=== PATIENT | male | born 1985 | race Caucasian/White ===

== ENCOUNTER 2017-11-13 23:56 | Emergency (ER) | payer BC ==
--- NOTE | 2017-11-14 00:10 | EDM.PDOC ---
ED HPI GENERAL MEDICAL PROBLEM - General Chief Complaint: Abdominal Pain Stated Complaint: LOW BACK PAIN Time Seen by Provider: 11/14/17 00:09 Source of Information: Reports: Patient History Limitations: Reports: No Limitations - History of Present Illness INITIAL COMMENTS - FREE TEXT/NARRATIVE: HISTORY AND PHYSICAL: History of present illness: 32-year-old male presenting emergency department with chief complaint of right upper quadrant pain starting 1-1/2 hours ago. Patient states that approximately 1 and upper hours ago he began to have right pain radiated to below his right-sided rib cage. His sharp and constant however has intermittent times where the pain is worse and then sometimes better. Does admit to eating a large fatty diet tonight. He thought that he may have overate so induced one episode of vomiting which did not seem to help the pain. In a similar episode 2 weeks ago and presented the [facility] department. He left without being seen secondary to being there for an extended time. Patient denies any fever, chills, nausea, chest pain, shortness of breath, cough, diarrhea. He still has his gallbladder and appendix. He has no allergy to sulfa medications. He has no significant past medical history. 0045- CBC, CMP, UA unremarkable 1 mg Diluadid help on some with pain. 2 mg IV dilaudid given 0350- Talked with Dr. Henriquez, surgeon animal damage control agent about patient. Instructed patient to call his office this morning to schedule an appointment for further evaluation. Review of systems: As per history of present illness and below otherwise all systems reviewed and negative. Past medical history: As per history of present illness and as reviewed below otherwise noncontributory. Surgical history: As per history of present illness and as reviewed below otherwise noncontributory. Social history: No reported history of drug or alcohol abuse. Family history: As per history of present illness and as reviewed below otherwise noncontributory. Physical exam: HEENT: Atraumatic, normocephalic, pupils reactive, negative for conjunctival pallor or scleral icterus, mucous membranes moist, throat clear, neck supple, nontender, trachea midline. Lungs: Clear to auscultation, breath sounds equal bilaterally, chest nontender. Heart: S1S2, regular, negative for clicks, rubs, or JVD. Abdomen: Soft, tender to deep palpation right upper quadrant. No right lower quadrant pain. Negative for masses or hepatosplenomegaly. Negative for costovertebral tenderness. Pelvis: Stable nontender. Genitourinary: Deferred. Rectal: Deferred. Extremities: Atraumatic, negative for cords or calf pain. Neurovascular unremarkable. Neuro: Awake, alert, oriented. Cranial nerves II through XII unremarkable. Cerebellum unremarkable. Motor and sensory unremarkable throughout. Exam nonfocal. Diagnostics: CBC, CMP, UA/UC, RUQ US, CT abdomen pelvis Therapeutics: 1 L normal saline, 1 mg Dilaudid IV 1, 2 mg Dialuadid IV x1 Impression: Biliary colic Cholelithiasis without cholecystitis Plan: CBC, CMP, UA, are all unremarkable. Right upper quadrant ultrasound was significant for findings of cholelithiasis without cholecystitis. Patient's symptoms were most likely from these findings. Patient's pain was controlled with a total of 3 mg of Dilaudid. Pain had much improved by time of discharge. After talking to Dr. Henriquez he is aware of the patient and they're going to call his office tomorrow to schedule appointment for further evaluation for possible cholecystectomy. No signs of infection were found throughout exam. He was discharged in good condition with instructions for follow-up as well with Dr. Henriquez as well as his primary care physician. He was given a prescription for [place] 10?3 25 mg #12 for pain. Abdomen Pain Score (Numeric/FACES): 10 - Related Data Allergies Allergy/AdvReac Type Severity Reaction Status Date / Time Sulfa (Sulfonamide Allergy Swelling Verified 11/14/17 00:04 Antibiotics) Home Meds: Home Meds . [No Known Home Meds] 11/14/17 [History] ED ROS GENERAL - Review of Systems Review Of Systems: See Below ED EXAM, GENERAL - Physical Exam Exam: See Below Course - Vital Signs Last Recorded V/S: Last Vital Signs Temp 98.0 F 11/14/17 02:54 Pulse 75 11/14/17 02:54 Resp 16 11/14/17 02:54 BP 111/77 11/14/17 02:54 Pulse Ox 98 11/14/17 02:54 - Orders/Labs/Meds Orders: Active Orders 24 hr Category Date Time Status Abdomen Ltd [US] Stat Exams 11/14/17 02:23 Taken Abdomen Pelvis w Cont [CT] Stat Exams 11/14/17 00:18 Taken CULTURE URINE [RM] Stat Lab 11/14/17 00:00 Received UA W/MICROSCOPIC [URIN] Stat Lab 11/14/17 00:00 Ordered Labs: Laboratory Tests 11/14/17 11/14/17 11/14/17 Range/Units 00:00 00:10 00:10 WBC 10.20 (4.0-11.0) K/uL RBC 4.81 (4.50-5.90) M/uL Hgb 15.0 (13.0-17.0) g/dL Hct 43.0 (38.0-50.0) % MCV 89.4 (80.0-98.0) fL MCH 31.2 (27.0-32.0) pg MCHC 34.9 (31.0-37.0) g/dL RDW Std Deviation 39.4 (28.0-62.0) fl RDW Coeff of Vazquez 12 (11.0-15.0) % Plt Count 247 (150-400) K/uL MPV 9.50 (7.40-12.00) fL Neut % (Auto) 54.7 (48.0-80.0) % Lymph % (Auto) 30.1 (16.0-40.0) % Miller % (Auto) 11.3 (0.0-15.0) % Eos % (Auto) 3.6 (0.0-7.0) % Baso % (Auto) 0.3 (0.0-1.5) % Neut # (Auto) 5.6 (1.4-5.7) K/uL Lymph # (Auto) 3.1 H (0.6-2.4) K/uL Miller # (Auto) 1.2 H (0.0-0.8) K/uL Eos # (Auto) 0.4 (0.0-0.7) K/uL Baso # (Auto) 0.0 (0.0-0.1) K/uL Sodium 139 (136-148) mmol/L Potassium 3.8 (3.5-5.1) mmol/L Chloride 104 (98-107) mmol/L Carbon Dioxide 28.5 (21.0-32.0) mmol/L BUN 23 H (7.0-18.0) mg/dL Creatinine 1.1 (0.8-1.3) mg/dL Est Cr Clr Drug Dosing 101.39 mL/min Estimated GFR (MDRD) > 60.0 ml/min Glucose 107 H (74-106) mg/dL Calcium 8.8 (8.5-10.1) mg/dL Total Bilirubin 0.9 (0.2-1.0) mg/dL AST 19 (15-37) IU/L ALT 35 (14-63) IU/L Alkaline Phosphatase 69 (46-116) U/L Total Protein 7.8 (6.4-8.2) g/dL Albumin 4.1 (3.4-5.0) g/dL Globulin 3.7 H (2.0-3.5) g/dL Albumin/Globulin Ratio 1.1 L (1.3-2.8) Urine Color YELLOW Urine Appearance CLEAR Urine pH 5.5 (5.0-8.0) Ur Specific [place] >= 1.030 (1.001-1.035) Urine Protein NEGATIVE (NEGATIVE) mg/dL Urine Glucose (UA) NEGATIVE (NEGATIVE) mg/dL Urine Ketones NEGATIVE (NEGATIVE) mg/dL Urine Occult Blood NEGATIVE (NEGATIVE) Urine Nitrite NEGATIVE (NEGATIVE) Urine Bilirubin NEGATIVE (NEGATIVE) Urine Urobilinogen 0.2 (<2.0) EU/dL Ur Leukocyte Esterase NEGATIVE (NEGATIVE) Urine RBC NONE SEEN (0-2/HPF) Urine WBC 0-1 (0-5/HPF) Ur Epithelial Cells NOT SEEN (NONE-FEW) Urine Bacteria RARE (NEGATIVE) Urine Mucus LIGHT (NONE-MOD) Meds: Medications Discontinued Medications Generic Name Dose Route Start Last Admin Trade Name Sherice PRN Reason Stop Dose Admin Hydromorphone HCl 1 mg 11/14/17 00:17 11/14/17 00:21 Dilaudid IVPUSH 11/14/17 00:18 1 mg ONETIME ONE Administration Hydromorphone HCl 2 mg 11/14/17 00:47 11/14/17 00:51 Dilaudid IVPUSH 11/14/17 00:48 2 mg ONETIME ONE Administration Sodium Chloride 1,000 mls @ 999 mls/hr 11/14/17 00:17 11/14/17 00:21 Normal Saline IV 11/14/17 01:17 999 mls/hr STAT ONE Administration Iopamidol 100 ml 11/14/17 01:26 11/14/17 01:26 Isovue-370 (76%) IVPUSH 11/14/17 01:27 100 ml ONETIME STA Administration Departure - Departure Time of Disposition: 02:11 Disposition: Admitted As Inpatient 68 Condition: Fair Clinical Impression: Biliary colic - Discharge Information Instructions: Cholelithiasis Referrals: Suri Loza DO [Primary Care Provider] - Forms: ED Department Discharge Additional Instructions: My general discharge The following information is given to patients seen in the emergency department who are being discharged to home. This information is to outline your options for follow-up care. We provide all patients seen in our emergency department with a follow-up referral. The need for follow-up, as well as the timing and circumstances, are variable depending upon the specifics of your emergency department visit. If you don't have a primary care physician on staff, we will provide you with a referral. We always advise you to contact your personal physician following an emergency department visit to inform them of the circumstance of the visit and for follow-up with them and/or the need for any referrals to a consulting specialist. The emergency department will also refer you to a specialist when appropriate. This referral assures that you have the opportunity for follow-up care with a specialist. All of these measure are taken in an effort to provide you with optimal care, which includes your follow-up. Under all circumstances we always encourage you to contact your private physician who remains a resource for coordinating your care. When calling for follow-up care, please make the office aware that this follow-up is from your recent emergency room visit. If for any reason you are refused follow-up, please contact the [facility] Emergency Department at and asked to speak to the emergency department charge nurse. My General Surgery [facility] Specialty [facility] - General Surgery Professional Building [address] [place] [address], [address] [place] [address] [facility] [address] [place] [id number] Call above general surgery number and ask for Dr. Henriuqez's office. Be sure to tell them that you were seen in the emergency room and Dr. Henriquez is aware of your gallstones. Take pain medications as prescribed. Return to emergency department if any new or worsening symptoms. - My Orders Last 24 Hours: My Active Orders 11/14/17 00:00 CULTURE URINE [RM] Stat UA W/MICROSCOPIC [URIN] Stat 11/14/17 00:18 Abdomen Pelvis w Cont [CT] Stat 11/14/17 02:23 Abdomen Ltd [US] Stat - Assessment/Plan Last 24 Hours: My Active Orders 11/14/17 00:00 CULTURE URINE [RM] Stat UA W/MICROSCOPIC [URIN] Stat 11/14/17 00:18 Abdomen Pelvis w Cont [CT] Stat 11/14/17 02:23 Abdomen Ltd [US] Stat
[2017-11-14] MEDS ORDERED: HYDROmorphone 1 MG/ML Syringe IVPUSH ONE (00:17)
[2017-11-14] MEDS ORDERED: Sodium Chloride 0.9% 1,000 ML IV ONE (00:17)
[2017-11-14 00:46] LABS: CHLORIDE,CL 104 mmol/L (98-107); SODIUM,NA 139 mmol/L (136-148)
[2017-11-14] MEDS ORDERED: HYDROmorphone 2 MG/ML SDV IVPUSH ONE (00:47)
[2017-11-14] MEDS ORDERED: Iopamidol 755 Mg/ML 100 ML Bottle IVPUSH STA (01:26)
--- NOTE | 2017-11-14 10:05 | CT ---
EXAM DATE: 11/13/17 PATIENT'S AGE: 32 Patient: CECILIO MORALES Facility: [place], [place] Site . Site : 1985 Study: CT Abdomen/Pelvis [id number]/31/2018 1:31:44 AM Ordering Physician: Doctor Erickson Final Report: INDICATION: Right upper quadrant TECHNIQUE: CT abdomen and pelvis with 100 cc Isovue-300 contrast. COMPARISON: None FINDINGS: Lower chest: Unremarkable. Liver: Unremarkable. Spleen: Unremarkable. Pancreas: Unremarkable. Gallbladder and bile ducts: Unremarkable. Adrenal glands: Unremarkable. Kidneys: Unremarkable. No kidney or ureteral stones and no hydronephrosis. GI tract: Unremarkable. Appendix is normal. Vascular structures: Unremarkable. Lymph nodes: Unremarkable. Miscellaneous: Unremarkable. No free air or significant free fluid. Pelvic Organs: Unremarkable. Bones: Bilateral L4 pars defects without anterolisthesis. IMPRESSION: No acute intra-abdominal process identified. Please note that all CT scans at this facility use dose modulation, iterative reconstruction, and/or weight-based dosing when appropriate to reduce radiation dose to as low as reasonably achievable. Dictated by Gaby Rubio MD @ Nov 14 2017 1:42AM (Electronic Signature) Report Signed by Proxy. [facility]
--- NOTE | 2017-11-14 10:06 | US ---
EXAM DATE: 11/13/17 PATIENT'S AGE: 32 Patient: CECILIO MORALES Facility: [place], [place] Site . Site : 1985 Study: US Abdomen [id number]/31/2018 2:57:20 AM Ordering Physician: Guille Sheehan Final Report: INDICATION: Right upper quadrant pain TECHNIQUE: Ultrasound abdomen limited. Sonographic images of the right upper quadrant were obtained using allen-scale and color Doppler images. COMPARISON: None FINDINGS: Liver: The liver parenchyma is normal in echotexture. Gallbladder: Shadowing, mobile echogenic gallstones are seen within the gallbladder. The gallbladder wall is normal in appearance. No pericholecystic fluid is present. Common bile duct: 4 mm. The common bile duct is normal in appearance and size. Pancreas: The visualized portions of the pancreatic head and body are normal in appearance. Right Kidney: 13.2 cm. No hydronephrosis or ureterectasis is seen. Vascular: Proximal abdominal aorta and IVC are normal in caliber. The visualized portal vein is patent with normal anterograde flow. IMPRESSION: 1. Multiple gallstones are present with no sonographic evidence of cholecystitis at this time. Dictated by Maykel Cui MD @ 11/14/2017 3:03:54 AM Dictated by: Maykel Cui MD @ 11/14/2017 03:03:58 (Electronic Signature) Report Signed by Proxy. [facility]
== END 2017-11-14 04:17 | disposition home or self-care (01) ==
LOC: MW.ED 23:56
DX: K80.20 Calculus of gallbladder without cholecystitis without obstruction (principal); K80.50 Calculus of bile duct without cholangitis or cholecystitis without obstruction; Z88.2 Allergy status to sulfonamides
CPT/HCPCS: 36415; 74177; 76705; 80053; 81001; 85025; 87086; 96361; 96374; 99284; J1170; J7040; Q9967

== ENCOUNTER 2017-11-19 07:58 | Inpatient (IN) | payer BC ==
[2017-11-19] MEDS: Lactated Ringers 1,000 ML IV SCH ×3 (07:10→18:18)
[~2017-11-19 07:58] MED LIST: Bupivacaine 0.5% 30 ML SDV ONE; Scopolamine 1.5 MG Transdermal Patch TRDERM PRN; Sodium Chloride 0.9% 10 ML Syringe FLUSH PRN; Sodium Chloride 0.9% 2.5 ML Syringe FLUSH PRN; ceFAZolin 2 GM in Premix Bag 1 BAG IV ONE
--- NOTE | 2017-11-19 09:02 | PCM.PREANE ---
Preanesthetic Assessment - Anesthesia/Transfusion/Family Hx Anesthesia History: Prior Anesthesia Without Reaction Family History of Anesthesia Reaction: No Transfusion History: No Prior Transfusion(s) Intubation History: Unknown - Review of Systems General: No Symptoms Pulmonary: No Symptoms Cardiovascular: No Symptoms Gastrointestinal: Abdominal Pain Neurological: No Symptoms Other: Reports: None - Physical Assessment Height: 1.7 m Weight: 127.006 kg ASA Class: 2 Mental Status: Alert & Oriented x3 Airway Class: Mallampati = 3 Dentition: Reports: Normal Dentition Thyro-Mental Finger Breadths: 2 Mouth Opening Finger Breadths: 2 ROM/Head Extension: Full Lungs: Clear to Auscultation, Normal Respiratory Effort Cardiovascular: Regular Rate, Regular Rhythm - Allergies Allergies/Adverse Reactions: Allergies Allergy/AdvReac Type Severity Reaction Status Date / Time Sulfa (Sulfonamide Allergy Swelling Verified 11/18/17 08:58 Antibiotics) - Blood Blood Available: No - Anesthesia Plan Pre-Op Medication Ordered: None - Acknowledgements Anesthesia Type Planned: General Anesthesia Pt an Appropriate Candidate for the Planned Anesthesia: Yes Alternatives and Risks of Anesthesia Discussed w Pt/Guardian: Yes Pt/Guardian Understands and Agrees with Anesthesia Plan: Yes PreAnesthesia Questionnaire HEENT History: Reports: None Cardiovascular History: Reports: None Respiratory History: Reports: Sleep Apnea Other Respiratory History: instructed to bring CPAP with him Gastrointestinal History: Reports: Cholelithiasis Genitourinary History: Reports: None Musculoskeletal History: Reports: None Neurological History: Reports: None Psychiatric History: Reports: Anxiety, Depression Endocrine/Metabolic History: Reports: Obesity/BMI 30+ Hematologic History: Reports: None Immunologic History: Reports: None Oncologic (Cancer) History: Reports: None Dermatologic History: Reports: None - Infectious Disease History Infectious Disease History: Reports: None - Past Surgical History Head Surgeries/Procedures: Reports: None HEENT Surgical History: Reports: Tonsillectomy - SUBSTANCE USE Smoking Status *Q: Never Smoker Recreational Drug Use History: No - HOME MEDS Home Medications: Home Meds Dicyclomine HCl [Bentyl] 1 - 2 tab PO ASDIRECTED PRN 11/18/17 [History] Hydrocodone/Acetaminophen [Hydrocodon-Acetaminophn 10-325] 1 tab PO ASDIRECTED PRN 11/18/17 [History] - CURRENT (IN HOUSE) MEDS Current Meds: Current Medications Fentanyl (Sublimaze) 50 - 100 mcg IVPUSH Q5M PRN PRN Reason: Pain (severe 7-10) Lactated Ringer's (Ringers, Lactated) 1,000 mls @ 125 mls/hr IV ASDIRECTED MOLLY Scopolamine (Transderm-Scop) 1.5 mg TRDERM Q72H PRN PRN Reason: Nausea Sodium Chloride (Saline Flush) 10 ml FLUSH ASDIRECTED PRN PRN Reason: Keep Vein Open Sodium Chloride (Saline Flush) 2.5 ml FLUSH ASDIRECTED PRN PRN Reason: Keep Vein Open Discontinued Medications Bupivacaine HCl (Marcaine 0.5%) Confirm Administered Dose 30 ml .ROUTE .STK-MED ONE Stop: 11/19/17 07:37 Cefazolin Sodium/Dextrose 2 gm (/ Premix) 50 mls @ 100 mls/hr IV ONETIME ONE Stop: 11/18/17 18:43
[2017-11-19] MEDS ORDERED: ceFAZolin/Dextrose,Iso-Osmotic 2 GM/50 ML Duplex Bag IV ONE (09:05)
[2017-11-19] MEDS ORDERED: Bupivacaine 0.5% 30 ML SDV ONE (10:17)
[2017-11-19] MEDS ORDERED: fentaNYL 250 MCG/5 ML SDV ONE (10:53)
[2017-11-19] MEDS ORDERED: Promethazine 25 MG/ML SDV IM PRN (12:23)
[2017-11-19] MEDS ORDERED: Ondansetron 4 MG/2 ML SDV IVPUSH PRN (12:23)
[2017-11-19] MEDS ORDERED: Polyethylene Glycol 3350 Powder 17 GM Packet PO PRN (12:23)
--- NOTE | 2017-11-19 12:23 | PCM.OPNOTE ---
- General Post-Op/Procedure Note Date of Surgery/Procedure: 11/19/17 Operative Procedure(s): Laparoscopic converted to open cholecystectomy Findings: Severely inflamed and partially necrotic gallbladder containing multiple stones Pre Op Diagnosis: Symptomatic cholelithiasis Post-Op Diagnosis: Severe cholecystitis Anesthesia Technique: General ET Tube Primary Surgeon: Anayeli Wallace Secondary Surgeon: Quoc Henriquez Fluid Replacement, Intraop: 1,100 Output, Urine Amount: 125 EBL in mLs: 800 Surgical Drain/Tube Type: Chris Drain Condition: Good
[2017-11-19] MEDS ORDERED: HYDROmorphone 2 MG/ML SDV IVPUSH ONE (12:25)
[2017-11-19] MEDS: fentaNYL 100 MCG/2 ML SDV IVPUSH PRN ×2 (13:00→13:05)
--- NOTE | 2017-11-19 13:24 | PCM.POSTAN ---
POST ANESTHESIA ASSESSMENT - MENTAL STATUS Mental Status: Alert, Oriented - VITAL SIGNS Pulse Rate: 95 SaO2: 95 Resp Rate: 16 Blood Pressure: 120/74 - RESPIRATORY Respiratory Status: Respiratory Rate WNL, Airway Patent, O2 Saturation Stable, Supplemental Oxygen Free Text/Narrative:: O2 via nasal canula - CARDIOVASCULAR CV Status: Pulse Rate WNL, Blood Pressure Stable - GASTROINTESTINAL GI Status: No Symptoms Free Text/Narrative:: Has NG - PAIN Pain Score: 4 - POST OP HYDRATION Hydration Status: Adequate & Stable - OBSERVATIONS Free Text/Narrative:: inpatient to ICU
[2017-11-19] MEDS: HYDROmorphone/Normal Saline 6 MG/30 ML PCA Vial IV PRN ×3 (13:44→20:38)
[2017-11-19] MEDS: Pantoprazole 40 MG Vial IVPUSH SCH ×2 (13:49→14:06)
[2017-11-19] MEDS: Cyclobenzaprine 5 MG Tab PO SCH ×2 (14:06→21:56)
[2017-11-19] MEDS: Piperacillin/Tazobactam 3.375 GM in Sodium Chloride 0.9% 50 ML IV SCH (21:56)
[2017-11-20] MEDS: Lactated Ringers 1,000 ML IV SCH ×2 (01:52→17:18)
[2017-11-20] MEDS: HYDROmorphone/Normal Saline 6 MG/30 ML PCA Vial IV PRN ×2 (04:10→13:11)
[2017-11-20] MEDS: Cyclobenzaprine 5 MG Tab PO SCH ×3 (05:24→21:43)
[2017-11-20] MEDS: Piperacillin/Tazobactam 3.375 GM in Sodium Chloride 0.9% 50 ML IV SCH ×3 (05:24→21:43)
[2017-11-20 05:43] LABS: CHLORIDE,CL 103 mmol/L (98-107); SODIUM,NA 138 mmol/L (136-148)
--- NOTE | 2017-11-20 07:33 | PCM48HPAN ---
Post Anesthesia Note - EVALUATION WITHIN 48HRS OF ANESTHETIC Vital Signs in Normal Range: Yes Patient Participated in Evaluation: Yes Respiratory Function Stable: Yes Airway Patent: Yes Cardiovascular Function Stable: Yes Hydration Status Stable: Yes Pain Control Satisfactory: Yes Nausea and Vomiting Control Satisfactory: Yes Mental Status Recovered: Yes Pulse Rate: 95 Resp Rate: 27 Blood Pressure: 120/74
[2017-11-20] MEDS: Pantoprazole 40 MG Vial IVPUSH SCH (08:54)
[2017-11-20] MEDS: Acetaminophen 325 MG Tab PO PRN ×2 (08:58→16:06)
--- NOTE | 2017-11-20 09:10 | OR ---
SURGEON: FERNANDO BACK MD DATE OF PROCEDURE: 11/19/2017 PREOPERATIVE DIAGNOSIS: Symptomatic cholelithiasis. POSTOPERATIVE DIAGNOSIS: Severe cholecystitis secondary to cholelithiasis. MOTION PICTURE PROJECTIONIST APPRENTICE: Quoc Henriquez M.D. ANESTHESIA: General endotracheal anesthesia. FLUIDS: 1100 mL crystalloid. ESTIMATED BLOOD LOSS: 800 mL. URINE OUTPUT: 125 mL. FINDINGS: Severely inflamed and enlarged gallbladder encased in omentum. Unable to identify the cystic duct and artery secondary to severe inflammation at the infundibulum. Partial cholecystectomy with ~ 10% of the proximal gallbladder left in place and oversewn. COMPLICATIONS: None. INDICATIONS: The patient is a 32-year-old male who presented to the emergency room last week with right upper quadrant pain. His white blood cell count was normal. A right upper quadrant ultrasound showed cholelithiasis with no evidence of cholecystitis. The patient and I discussed the pathophysiology of biliary disease. I explained to him that the treatment for his symptomatic cholelithiasis is cholecystectomy. We discussed the laparoscopic and open approaches. We discussed the expected perioperative course as well as the risks including bleeding, infection, or damage to surrounding structures. The patient verbalized understanding and wishes to proceed. PROCEDURE IN DETAIL: The patient was brought into the OR and placed on the OR table in supine position. A time-out was completed verifying the patient's name, age, date of , allergies, and procedure to be performed. General endotracheal anesthesia was induced. The left arm was tucked to the patient's side, and a Gamboa catheter placed. The abdomen was prepped and draped in usual standard fashion. The supraumbilical midline was anesthetized with 0.5% Marcaine plain. A 3 cm incision was made just above the supraumbilical fold along the midline. Retractors were used to bluntly dissect down to the level of the fascia. The fascia was elevated with Lona's and incised sharply with Osborne scissors. The peritoneum was identified. This was elevated with hemostats and incised sharply with Metzenbaum scissors. Entry into the abdomen was palpated. Two 0 Vicryl stay sutures were placed on either side of the fascia, and a 12 mm Damian trocar was placed in the abdomen. The abdomen was insufflated. I inserted a 5 mm 30- degree scope and inspected the area underneath my initial trocar placement. No damage to surrounding structures was noted. The patient was placed into reverse Trendelenburg position and airplaned slightly to the left. 5 mm trocars were placed in the following locations under direct visualization; one in the epigastric area, one in the right flank, and one, 2 fingerbreadths below the right subcostal margin along the midclavicular line. I was able to identify the gallbladder; however, it was completely encased in thickened and inflamed omentum. I grasped the top of the gallbladder with an atraumatic grasper and attempted to take down the attachments of the omentum to the gallbladder wall. These were extremely dense and bled easily. The gallbladder wall itself was extremely thick, and I was unable to get a good grasp of the gallbladder with the atraumatic grasper. Given this degree of severe inflammation, I made the decision to convert to an open procedure. I called my partner, Dr. Quoc Henriquez, into the operating room to assist me. A right subcostal incision was made connecting the epigastric and right subcostal incisions. Cautery was used to dissect down through the abdominal wall. The peritoneum was sharply incised using a metzenbaum scissors. Once I gained entry into the abdomen, I was able to pack off the colon and small bowel with wet laps. I first worked on getting the omentum off the anterior gallbladder wall. Using finger fracture, I was able to peel the omentum off the anterior wall of the gallbladder. The gallbladder itself was intrahepatic and we were unable to identify the infundibulum, let alone the cystic duct or arteries due to this area being incased in thickened and inflamed tissue. We decided to continue our dissection in a dome down, lateral to medial fashion. Dr. Henriquez grasped the top of the gallbladder with a tonsil and used Metzenbaum scissors to try to create a plane between the gallbladder wall and the liver. This was extremely difficult given the severe degree of inflammation. In order to facilitate better mobility of the gallbladder itself, we inserted a trocar into the gallbladder lumen and aspirated thick tenacious bile. Inside the gallbladder were multiple ~1 cm yellow appearing stones. We removed these. After this, we were able to better manipulate the gallbladder. We approached the gallbladder in a lateral- to-medial fashion. We were able to start creating a plane between the gallbladder wall and the gallbladder fossa. We encountered a large amount of bleeding. Several large vessels were encountered along the gallbladder wall and were ligated using 2-0 silk stick ties. The closer we got to the infundibulum, the more severe the degree of inflammation and bleeding became. There was a thick rind around the gallbladder, and this dense inflammation completely obscured the cystic duct and artery. We decided to remove the distal half of the gallbladder to help guide our dissection. This was removed with cautery and passed off the field. The gallbladder wall was ~1.5 cm thick. Cautery was used on this wall to achieve hemostasis. We removed several other gallstones from within the gallbladder lumen itself. We could feel the insertion of the cystic duct inside the lumen. There were no stones impacted down in this area that we could palpate. Even though we could feel where the cystic duct was intra- luminally we could not identify the structures externally due to severe inflammation. Despite multiple attempts at dissection, we decided that the safest bet was to leave a cuff of gallbladder instead of attempt to dissect down any further into the thickened and inflamed tissue. Using cautery, we resected down as far as we safely could on the gallbladder wall. We left approximately 10% of the gallbladder proximally. Given the thickened and inflamed nature of the gallbladder wall, we were unable to staple across this area. We closed the gallbladder wall lumen with a running locking 0 Prolene stitch. This achieved hemostasis, and no bile leak was noted. Surgicel and Endo Avitene were then placed over the top of our cut edge. We then placed 0 prolene sutures on the anterior and posterior aspects of the gallbladder and tied a tongue of omentum over the cut edge of the gallbladder. A 19-Micronesian Chris drain was then placed under the tongue of omentum anterior to the gallbladder. No further bleeding was noted. No damage to surrounding structures was identified. An NG was placed in the stomach and its placement verified by palpation. The peritoneum was closed with a running 0 Vicryl stitch. The anterior abdominal wall fascia was closed with interrupted 0 Ethibond sutures. The subcutaneous fat was closed with a running 0 Vicryl stitch. The skin was then closed with carlos. The 19-Micronesian Chris drain was secured to the skin with a 2-0 silk suture. The fascia at the supraumbilical port site was closed with interrupted 0-Vicryl sutures. The skin was closed with carlos. Sterile dressings were applied. The patient tolerated the procedure well and was transferred to the PACU in stable condition. ANNIE KANG /[id number] MTDD
--- NOTE | 2017-11-20 11:47 | PCM.SURGPN ---
- General Info Date of Service: 11/20/17 Date of Surgery/Procedure: 11/19/17 POD#: 1 Functional Status: Reports: Other (Pain is well controlled with IV Dilaudid DIRECTOR SOFTWARE and scheduled Flexeril. Patient is reluctant to move in bed secondary to the pain. Vital signs are stable overnight. Urine output adequate. NG put out approximately 325 mils. Drain output appears serosanguineous with no evidence of bile leak.) - Review of Systems General: Reports: Fever HEENT: Reports: No Symptoms Pulmonary: Reports: No Symptoms Cardiovascular: Reports: No Symptoms Gastrointestinal: Reports: Abdominal Pain. Denies: Flatus Genitourinary: Reports: No Symptoms - Patient Data Vitals - Most Recent: Last Vital Signs Temp 38.2 C H 11/20/17 08:00 Pulse 95 11/20/17 07:32 Resp 25 H 11/20/17 10:00 BP 122/80 11/20/17 10:00 Pulse Ox 96 11/20/17 10:00 Weight - Most Recent: 122.7 kg I&O - Last 24 Hours: Intake & Output 11/19/17 11/20/17 11/20/17 22:59 06:59 14:59 Intake Total 1826 1215 200 Output Total 740 615 160 Balance 1086 600 40 Lab Results Last 24 Hrs: Laboratory Results - last 24 hr 11/19/17 11/20/17 11/20/17 Range/Units 12:43 04:45 04:45 WBC 13.28 H (4.0-11.0) K/uL RBC 4.50 (4.50-5.90) M/uL Hgb 14.5 13.9 (13.0-17.0) g/dL Hct 40.5 (38.0-50.0) % MCV 90.0 (80.0-98.0) fL MCH 30.9 (27.0-32.0) pg MCHC 34.3 (31.0-37.0) g/dL RDW Std Deviation 40.6 (28.0-62.0) fl RDW Coeff of Vazquez 12 (11.0-15.0) % Plt Count 322 (150-400) K/uL MPV 9.20 (7.40-12.00) fL Nucleated RBC % 0.0 /100WBC Nucleated RBCs # 0 K/uL Sodium 138 (136-148) mmol/L Potassium 4.3 (3.5-5.1) mmol/L Chloride 103 (98-107) mmol/L Carbon Dioxide 28.5 (21.0-32.0) mmol/L BUN 14 (7.0-18.0) mg/dL Creatinine 1.1 (0.8-1.3) mg/dL Est Cr Clr Drug Dosing 91.81 mL/min Estimated GFR (MDRD) > 60.0 ml/min Glucose 117 H (74-106) mg/dL Calcium 8.5 (8.5-10.1) mg/dL Total Bilirubin 1.0 (0.2-1.0) mg/dL AST 20 (15-37) IU/L ALT 32 (14-63) IU/L Alkaline Phosphatase 70 (46-116) U/L Total Protein 7.0 (6.4-8.2) g/dL Albumin 2.7 L (3.4-5.0) g/dL Globulin 4.3 H (2.0-3.5) g/dL Albumin/Globulin Ratio 0.6 L (1.3-2.8) Med Orders - Current: Current Medications Acetaminophen (Tylenol) 650 mg PO Q6H PRN PRN Reason: Fever Last Admin: 11/20/17 08:58 Dose: 650 mg Cyclobenzaprine HCl (Flexeril) 5 mg PO TID MOLLY Last Admin: 11/20/17 05:24 Dose: 5 mg Fentanyl (Sublimaze) 50 - 100 mcg IVPUSH Q5M PRN PRN Reason: Pain (severe 7-10) Last Admin: 11/19/17 13:05 Dose: 50 mcg Hydromorphone HCl (Dilaudid Cutter First 6 Mg In Ns 30 Ml) 6 mg IV ASDIRECTED PRN; Protocol PRN Reason: Abdominal Pain Last Admin: 11/20/17 04:10 Dose: 6 mg Lactated Ringer's (Ringers, Lactated) 1,000 mls @ 150 mls/hr IV ASDIRECTED MOLLY Last Admin: 11/20/17 01:52 Dose: 150 mls/hr Lactated Ringer's (Ringers, Lactated) 1,000 mls @ 1,000 mls/hr IV .BOLUS MOLLY Last Admin: 11/19/17 15:29 Dose: 1,000 mls/hr Piperacillin Sod/Tazobactam (Sod 3.375 gm/ Sodium Chloride) 50 mls @ 100 mls/ hr IV Q8H [facility] Last Admin: 11/20/17 05:24 Dose: 100 mls/hr Ondansetron HCl (Zofran) 4 mg IVPUSH Q6H PRN PRN Reason: Nausea/Vomiting Pantoprazole Sodium (Protonix Iv) 40 mg IVPUSH DAILY [facility] Last Admin: 11/20/17 08:54 Dose: 40 mg Polyethylene Glycol (Miralax) 17 gm PO DAILY PRN PRN Reason: Constipation Promethazine HCl (Phenergan) 25 mg IM Q6H PRN PRN Reason: Nausea Scopolamine (Transderm-Scop) 1.5 mg TRDERM Q72H PRN PRN Reason: Nausea Last Admin: 11/19/17 09:25 Dose: 1.5 mg Sodium Chloride (Saline Flush) 10 ml FLUSH ASDIRECTED PRN PRN Reason: Keep Vein Open Sodium Chloride (Saline Flush) 2.5 ml FLUSH ASDIRECTED PRN PRN Reason: Keep Vein Open Discontinued Medications Bupivacaine HCl (Marcaine 0.5%) Confirm Administered Dose 30 ml .ROUTE .STK-MED ONE Stop: 11/19/17 07:37 Bupivacaine HCl (Marcaine 0.5%) Confirm Administered Dose 120 ml .ROUTE .STK- MED ONE Stop: 11/19/17 10:18 Cefazolin Sodium/Dextrose (Ancef) Confirm Administered Dose 2 gm IV .STK-MED ONE Stop: 11/19/17 09:06 Fentanyl (Sublimaze) Confirm Administered Dose 250 mcg .ROUTE .STK-MED ONE Stop: 11/19/17 10:54 Hydromorphone HCl (Dilaudid) 2 mg IVPUSH ONETIME ONE Stop: 11/19/17 12:26 Last Admin: 11/19/17 12:39 Dose: 2 mg Cefazolin Sodium/Dextrose 2 gm (/ Premix) 50 mls @ 100 mls/hr IV ONETIME ONE Stop: 11/18/17 18:43 Last Admin: 11/19/17 13:49 Dose: Not Given - Exam Wound/Incisions: Dressing Dry and Intact Quality Assessment: Supplemental Oxygen General: Alert, Oriented, No Acute Distress HEENT: Pupils Equal, Pupils Reactive Neck: Trachea Midline Lungs: Clear to Auscultation, Normal Respiratory Effort Cardiovascular: Regular Rate, Regular Rhythm GI/Abdominal Exam: Soft, Non-Tender, No Distention, No Mass, Other (150 ml ). No: Guarding, Rigid, Rebound Extremities: Normal Inspection, Normal Range of Motion Skin: Warm, Dry, Intact Neurological: No New Focal Deficit Psy/Mental Status: Alert - Problem List & Annotations (1) Cholecystitis with cholelithiasis SNOMED Code(s): 746228824, 900793458 Code(s): K80.10 - CALCULUS OF GALLBLADDER W CHRONIC CHOLECYST W/O OBSTRUCTION Status: Acute Current Visit: Yes - Problem List Review Problem List Initiated/Reviewed/Updated: Yes - My Orders Last 24 Hours: Active Orders 24 hr Category Date Time Status Admission Status [Patient Status] [ADT] Routine ADT 11/19/17 12:59 Active Cardiac Monitoring [RC] Q8H Care 11/19/17 12:23 Active Drain Management [RC] Q4H Care 11/19/17 12:24 Active Intake and Output [RC] Q4HR Care 11/19/17 12:23 Active Oxygen Therapy [RC] PRN Care 11/19/17 12:23 Active Pulse Oximetry [RC] CONTINUOUS Care 11/19/17 12:23 Active RT Incentive Spirometry [RC] ASDIRECTED Care 11/19/17 12:23 Active Remove Urinary Catheter [Urinary Catheter Removal] [RC] Care 11/19/17 18:13 Active ASDIRECTED Up ad Steffany [RC] ASDIRECTED Care 11/19/17 12:23 Active Vital Signs [RC] Q1H Care 11/19/17 12:23 Active Clear Liquid Diet [DIET] Diet 11/20/17 Breakfast Active CBC W/O DIFF,HEMOGRAM [HEME] AM Lab 11/21/17 05:11 Ordered CBC W/O DIFF,HEMOGRAM [HEME] AM Lab 11/22/17 05:11 Ordered CBC W/O DIFF,HEMOGRAM [HEME] AM Lab 11/23/17 05:11 Ordered COMPREHENSIVE METABOLIC PN,CMP [CHEM] AM Lab 11/21/17 05:11 Ordered COMPREHENSIVE METABOLIC PN,CMP [CHEM] AM Lab 11/22/17 05:11 Ordered COMPREHENSIVE METABOLIC PN,CMP [CHEM] AM Lab 11/23/17 05:11 Ordered Acetaminophen [Tylenol] Med 11/19/17 12:23 Active 650 mg PO Q6H PRN Cyclobenzaprine [Flexeril] Med 11/19/17 14:00 Active 5 mg PO TID HYDROmorphone/Normal Saline [Dilaudid DIRECTOR SOFTWARE 6 MG in NS 30 Med 11/19/17 12:27 Active ML] 6 mg IV ASDIRECTED PRN Lactated Ringers [Ringers, Lactated] 1,000 ml Med 11/19/17 15:30 Active IV .BOLUS Ondansetron [Zofran] Med 11/19/17 12:23 Active 4 mg IVPUSH Q6H PRN Pantoprazole [ProTONIX IV] Med 11/19/17 12:30 Active 40 mg IVPUSH DAILY Piperacillin/Tazobactam [Piperacil-Tazobact] 3.375 gm Med 11/19/17 22:00 Active Sodium Chloride 0.9% [Normal Saline] 50 ml IV Q8H Polyethylene Glycol 3350 [MiraLAX] Med 11/19/17 12:23 Active 17 gm PO DAILY PRN Promethazine [Phenergan] Med 11/19/17 12:23 Active 25 mg IM Q6H PRN NG [Nasogastric Orogastric Tube Removal] [OM.PC] Oth 11/20/17 06:41 Ordered Routine Medication Orders Acetaminophen (Tylenol) 650 mg PO Q6H PRN PRN Reason: Fever Last Admin: 11/20/17 08:58 Dose: 650 mg Cyclobenzaprine HCl (Flexeril) 5 mg PO TID MOLLY Last Admin: 11/20/17 05:24 Dose: 5 mg Admin: 11/19/17 21:56 Dose: 5 mg Admin: 11/19/17 14:06 Dose: 5 mg Fentanyl (Sublimaze) 50 - 100 mcg IVPUSH Q5M PRN PRN Reason: Pain (severe 7-10) Last Admin: 11/19/17 13:05 Dose: 50 mcg Admin: 11/19/17 13:00 Dose: 50 mcg Hydromorphone HCl (Dilaudid Cutter First 6 Mg In Ns 30 Ml) 6 mg IV ASDIRECTED PRN; Protocol PRN Reason: Abdominal Pain Last Admin: 11/20/17 04:10 Dose: 6 mg Admin: 11/19/17 20:38 Dose: 6 mg Admin: 11/19/17 17:26 Dose: 6 mg Admin: 11/19/17 13:44 Dose: 6 mg Lactated Ringer's (Ringers, Lactated) 1,000 mls @ 150 mls/hr IV ASDIRECTED [facility] Last Admin: 11/20/17 01:52 Dose: 150 mls/hr Infusion: 11/20/17 01:52 Dose: 125 mls/hr Admin: 11/19/17 18:18 Dose: 125 mls/hr Infusion: 11/19/17 15:10 Dose: 125 mls/hr Admin: 11/19/17 07:10 Dose: 125 mls/hr Lactated Ringer's (Ringers, Lactated) 1,000 mls @ 1,000 mls/hr IV .BOLUS [facility] Last Admin: 11/19/17 15:29 Dose: 1,000 mls/hr Piperacillin Sod/Tazobactam (Sod 3.375 gm/ Sodium Chloride) 50 mls @ 100 mls/ hr IV Q8H [facility] Last Admin: 11/20/17 05:24 Dose: 100 mls/hr Infusion: 11/19/17 22:26 Dose: 100 mls/hr Admin: 11/19/17 21:56 Dose: 100 mls/hr Ondansetron HCl (Zofran) 4 mg IVPUSH Q6H PRN PRN Reason: Nausea/Vomiting Pantoprazole Sodium (Protonix Iv) 40 mg IVPUSH DAILY [facility] Last Admin: 11/20/17 08:54 Dose: 40 mg Admin: 11/19/17 14:06 Dose: 40 mg Polyethylene Glycol (Miralax) 17 gm PO DAILY PRN PRN Reason: Constipation Promethazine HCl (Phenergan) 25 mg IM Q6H PRN PRN Reason: Nausea Scopolamine (Transderm-Scop) 1.5 mg TRDERM Q72H PRN PRN Reason: Nausea Last Admin: 11/19/17 09:25 Dose: 1.5 mg Sodium Chloride (Saline Flush) 10 ml FLUSH ASDIRECTED PRN PRN Reason: Keep Vein Open Sodium Chloride (Saline Flush) 2.5 ml FLUSH ASDIRECTED PRN PRN Reason: Keep Vein Open - Plan Plan (Free Text/Narrative):: Pain: Flexeril 5 mg 3 times a day, Dilaudid DIRECTOR SOFTWARE Cardiovascular: Patient was vitally stable overnight. Since he is an awake he is been slightly tachycardic. This may be due to pain. We'll continue to monitor in ICU for today. Encouraged patient to use incentive spirometer. GI: NG was clamped this morning and the patient tolerated drinks of clear liquid. NG was removed. Clear liquid diet to start today. Liver function tests were all within normal limits. His drain shows no evidence of bile leak. We'll continue to monitor closely for any signs of this. If he does have bile leak he will need to go to [facility] for possible ERCP and stent placement. Renal: BUN/creatinine are normal urine output is excellent. Gamboa catheter can be removed as soon as patient is able to get in and out of bed without too much assistance. ID: Patient had a fever early this morning. Tylenol as written for. Continue IV Zosyn 3.375 mg every 8 hours. Prophylaxis: SCDs, no heparin today given the amount of blood loss in the case.
[2017-11-20] MEDS ORDERED: Ibuprofen 200 MG Tab PO PRN (19:00)
--- NOTE | 2017-11-20 19:32 | PCM.SN ---
- Free Text/Narrative Note: Patient febrile today. He was given tylenol but continues to febrile. I came in to evaluate patient. Earlier he was tachypenic and mildly tachycardic. His heart rate and respiratory rate have improved. His abdomen is soft, non-tender, with no rebound or guarding. I removed all the dressings and the wound appears healthy with no evidence of warmth, erythema, crepitus or drainage. The drain output is more serous tonight. There is no bilious staining. I feel this is due to the inflammatory process from resecting such a grossly inflamed gallbladder. I ordered motrin 200mg 1-2 tabs q4hr prn fever. Will continue to monitor.
[2017-11-20 20:16] LABS: CHLORIDE,CL 98 mmol/L (98-107); SODIUM,NA 135 mmol/L (136-148)
[2017-11-20] MEDS: Enoxaparin 40 MG/0.4 ML Syringe SUBCUT SCH (21:44)
[2017-11-21] MEDS: Lactated Ringers 1,000 ML IV SCH ×2 (04:00→15:35)
[2017-11-21] MEDS: HYDROmorphone/Normal Saline 6 MG/30 ML PCA Vial IV PRN (04:34)
[2017-11-21 06:06] LABS: CHLORIDE,CL 100 mmol/L (98-107); SODIUM,NA 136 mmol/L (136-148)
[2017-11-21] MEDS: Cyclobenzaprine 5 MG Tab PO SCH ×3 (06:31→21:08)
[2017-11-21] MEDS: Piperacillin/Tazobactam 3.375 GM in Sodium Chloride 0.9% 50 ML IV SCH ×3 (06:32→21:08)
[2017-11-21] MEDS: Pantoprazole 40 MG Vial IVPUSH SCH (08:56)
[2017-11-21] MEDS ORDERED: HYDROmorphone 1 MG/ML Syringe IVPUSH PRN (15:49)
[2017-11-21] MEDS ORDERED: Bisacodyl 5 MG Tab PO PRN (15:50)
--- NOTE | 2017-11-21 15:56 | PCM.SURGPN ---
- General Info Date of Service: 11/21/17 Date of Surgery/Procedure: 11/19/17 POD#: 2 Functional Status: Reports: Pain Controlled, Tolerating Diet, Ambulating, Urinating, Incentive Spirometry - Review of Systems General: Reports: Fever (broke last evening. Afebrile since. ) Pulmonary: Reports: No Symptoms Cardiovascular: Reports: No Symptoms Gastrointestinal: Reports: No Symptoms Genitourinary: Reports: No Symptoms Musculoskeletal: Reports: No Symptoms - Patient Data Vitals - Most Recent: Last Vital Signs Temp 35.8 C 11/21/17 12:00 Pulse 90 11/21/17 12:00 Resp 20 11/21/17 12:00 BP 113/69 11/21/17 12:00 Pulse Ox 96 11/21/17 12:00 Weight - Most Recent: 122.7 kg I&O - Last 24 Hours: Intake & Output 11/21/17 11/21/17 11/21/17 06:59 14:59 22:59 Intake Total 1779 50 2152 Output Total 820 1560 Balance 959 50 592 Lab Results Last 24 Hrs: Laboratory Results - last 24 hr 11/20/17 11/20/17 11/21/17 Range/Units 19:12 19:12 05:30 WBC 13.75 H 11.58 H (4.0-11.0) K/uL RBC 4.18 L 3.97 L (4.50-5.90) M/uL Hgb 13.1 12.0 L (13.0-17.0) g/dL Hct 37.5 L 35.7 L (38.0-50.0) % MCV 89.7 89.9 (80.0-98.0) fL MCH 31.3 30.2 (27.0-32.0) pg MCHC 34.9 33.6 (31.0-37.0) g/dL RDW Std Deviation 39.6 40.4 (28.0-62.0) fl RDW Coeff of Vazquez 12 12 (11.0-15.0) % Plt Count 273 251 (150-400) K/uL MPV 8.70 8.70 (7.40-12.00) fL Neut % (Auto) 73.8 (48.0-80.0) % Lymph % (Auto) 16.3 (16.0-40.0) % Howell % (Auto) 9.3 (0.0-15.0) % Eos % (Auto) 0.5 (0.0-7.0) % Baso % (Auto) 0.1 (0.0-1.5) % Neut # (Auto) 10.1 H (1.4-5.7) K/uL Lymph # (Auto) 2.2 (0.6-2.4) K/uL Howell # (Auto) 1.3 H (0.0-0.8) K/uL Eos # (Auto) 0.1 (0.0-0.7) K/uL Baso # (Auto) 0.0 (0.0-0.1) K/uL Nucleated RBC % 0.0 0.0 /100WBC Nucleated RBCs # 0 0 K/uL Sodium 135 L (136-148) mmol/L Potassium 4.1 (3.5-5.1) mmol/L Chloride 98 (98-107) mmol/L Carbon Dioxide 31.4 (21.0-32.0) mmol/L BUN 11 (7.0-18.0) mg/dL Creatinine 1.2 (0.8-1.3) mg/dL Est Cr Clr Drug Dosing 84.16 mL/min Estimated GFR (MDRD) > 60.0 ml/min Glucose 108 H (74-106) mg/dL Calcium 8.3 L (8.5-10.1) mg/dL Total Bilirubin 1.1 H (0.2-1.0) mg/dL AST 15 (15-37) IU/L ALT 26 (14-63) IU/L Alkaline Phosphatase 63 (46-116) U/L Total Protein 6.7 (6.4-8.2) g/dL Albumin 2.5 L (3.4-5.0) g/dL Globulin 4.2 H (2.0-3.5) g/dL Albumin/Globulin Ratio 0.6 L (1.3-2.8) 11/21/17 Range/Units 05:30 WBC (4.0-11.0) K/uL RBC (4.50-5.90) M/uL Hgb (13.0-17.0) g/dL Hct (38.0-50.0) % MCV (80.0-98.0) fL MCH (27.0-32.0) pg MCHC (31.0-37.0) g/dL RDW Std Deviation (28.0-62.0) fl RDW Coeff of Vazquez (11.0-15.0) % Plt Count (150-400) K/uL MPV (7.40-12.00) fL Neut % (Auto) (48.0-80.0) % Lymph % (Auto) (16.0-40.0) % Howell % (Auto) (0.0-15.0) % Eos % (Auto) (0.0-7.0) % Baso % (Auto) (0.0-1.5) % Neut # (Auto) (1.4-5.7) K/uL Lymph # (Auto) (0.6-2.4) K/uL Howell # (Auto) (0.0-0.8) K/uL Eos # (Auto) (0.0-0.7) K/uL Baso # (Auto) (0.0-0.1) K/uL Nucleated RBC % /100WBC Nucleated RBCs # K/uL Sodium 136 (136-148) mmol/L Potassium 4.2 (3.5-5.1) mmol/L Chloride 100 (98-107) mmol/L Carbon Dioxide 31.3 (21.0-32.0) mmol/L BUN 12 (7.0-18.0) mg/dL Creatinine 1.1 (0.8-1.3) mg/dL Est Cr Clr Drug Dosing 91.81 mL/min Estimated GFR (MDRD) > 60.0 ml/min Glucose 102 (74-106) mg/dL Calcium 8.5 (8.5-10.1) mg/dL Total Bilirubin 1.0 (0.2-1.0) mg/dL AST 13 L (15-37) IU/L ALT 22 (14-63) IU/L Alkaline Phosphatase 57 (46-116) U/L Total Protein 6.3 L (6.4-8.2) g/dL Albumin 2.3 L (3.4-5.0) g/dL Globulin 4.0 H (2.0-3.5) g/dL Albumin/Globulin Ratio 0.6 L (1.3-2.8) Med Orders - Current: Current Medications Bisacodyl (Dulcolax) 10 mg PO DAILY PRN PRN Reason: Constipation Cyclobenzaprine HCl (Flexeril) 5 mg PO TID [facility] Last Admin: 11/21/17 13:15 Dose: 5 mg Enoxaparin Sodium (Lovenox) 40 mg SUBCUT Q24H [facility] Last Admin: 11/20/17 21:44 Dose: 40 mg Fentanyl (Sublimaze) 50 - 100 mcg IVPUSH Q5M PRN PRN Reason: Pain (severe 7-10) Last Admin: 11/19/17 13:05 Dose: 50 mcg Hydromorphone HCl (Dilaudid) 1 mg IVPUSH Q1H PRN PRN Reason: Abdominal Pain Lactated Ringer's (Ringers, Lactated) 1,000 mls @ 1,000 mls/hr IV .BOLUS [facility] Last Admin: 11/19/17 15:29 Dose: 1,000 mls/hr Piperacillin Sod/Tazobactam (Sod 3.375 gm/ Sodium Chloride) 50 mls @ 100 mls/ hr IV Q8H [facility] Last Admin: 11/21/17 13:16 Dose: 100 mls/hr Lactated Ringer's (Ringers, Lactated) 1,000 mls @ 100 mls/hr IV ASDIRECTED [facility] Last Admin: 11/21/17 15:35 Dose: 100 mls/hr Ibuprofen (Motrin) 200 - 400 mg PO Q4H PRN PRN Reason: Fever Last Admin: 11/20/17 19:38 Dose: 400 mg Ondansetron HCl (Zofran) 4 mg IVPUSH Q6H PRN PRN Reason: Nausea/Vomiting Oxycodone/Acetaminophen (Percocet 325-5 Mg) 2 tab PO Q4H PRN PRN Reason: Abdominal Pain Pantoprazole Sodium (Protonix Iv) 40 mg IVPUSH DAILY [facility] Last Admin: 11/21/17 08:56 Dose: 40 mg Polyethylene Glycol (Miralax) 17 gm PO DAILY PRN PRN Reason: Constipation Last Admin: 11/21/17 14:15 Dose: 17 gm Promethazine HCl (Phenergan) 25 mg IM Q6H PRN PRN Reason: Nausea Scopolamine (Transderm-Scop) 1.5 mg TRDERM Q72H PRN PRN Reason: Nausea Last Admin: 11/19/17 09:25 Dose: 1.5 mg Sodium Chloride (Saline Flush) 10 ml FLUSH ASDIRECTED PRN PRN Reason: Keep Vein Open Sodium Chloride (Saline Flush) 2.5 ml FLUSH ASDIRECTED PRN PRN Reason: Keep Vein Open Discontinued Medications Acetaminophen (Tylenol) 650 mg PO Q6H PRN PRN Reason: Fever Last Admin: 11/20/17 16:06 Dose: 650 mg Bupivacaine HCl (Marcaine 0.5%) Confirm Administered Dose 30 ml .ROUTE .STK-MED ONE Stop: 11/19/17 07:37 Bupivacaine HCl (Marcaine 0.5%) Confirm Administered Dose 120 ml .ROUTE .STK- MED ONE Stop: 11/19/17 10:18 Cefazolin Sodium/Dextrose (Ancef) Confirm Administered Dose 2 gm IV .STK-MED ONE Stop: 11/19/17 09:06 Fentanyl (Sublimaze) Confirm Administered Dose 250 mcg .ROUTE .STK-MED ONE Stop: 11/19/17 10:54 Hydromorphone HCl (Dilaudid) 2 mg IVPUSH ONETIME ONE Stop: 11/19/17 12:26 Last Admin: 11/19/17 12:39 Dose: 2 mg Hydromorphone HCl (Dilaudid Truck Sales Manager 6 Mg In Ns 30 Ml) 6 mg IV ASDIRECTED PRN; Protocol PRN Reason: Abdominal Pain Last Admin: 11/21/17 04:34 Dose: 6 mg Cefazolin Sodium/Dextrose 2 gm (/ Premix) 50 mls @ 100 mls/hr IV ONETIME ONE Stop: 11/18/17 18:43 Last Admin: 11/19/17 13:49 Dose: Not Given Lactated Ringer's (Ringers, Lactated) 1,000 mls @ 150 mls/hr IV ASDIRECTED [facility] Last Admin: 11/20/17 01:52 Dose: 150 mls/hr - Exam Wound/Incisions: Healing Well Quality Assessment: Supplemental Oxygen General: Alert, Oriented, No Acute Distress Lungs: Clear to Auscultation, Normal Respiratory Effort Cardiovascular: Regular Rate, Regular Rhythm GI/Abdominal Exam: Soft, Non-Tender, No Distention, No Mass, Other (Drain output increasingly more serous. No bile staining ) Skin: Warm, Dry, Intact Neurological: No New Focal Deficit Psy/Mental Status: Alert, Normal Affect, Normal Mood - Problem List & Annotations (1) Cholecystitis with cholelithiasis SNOMED Code(s): 007819687, 471096815 Code(s): K80.10 - CALCULUS OF GALLBLADDER W CHRONIC CHOLECYST W/O OBSTRUCTION Status: Acute Current Visit: Yes - Problem List Review Problem List Initiated/Reviewed/Updated: Yes - My Orders Last 24 Hours: Active Orders 24 hr Category Date Time Status Transfer Patient (Change bed) [ADT] Routine ADT 11/21/17 06:51 Ordered CBC W/O DIFF,HEMOGRAM [HEME] AM Lab 11/22/17 05:11 Ordered CBC W/O DIFF,HEMOGRAM [HEME] AM Lab 11/23/17 05:11 Ordered Acetaminophen/oxyCODONE [Percocet 325-5 MG] Med 11/21/17 15:49 Ordered 2 tab PO Q4H PRN Bisacodyl [Dulcolax] Med 11/21/17 15:50 Ordered 10 mg PO DAILY PRN Enoxaparin [Lovenox] Med 11/20/17 21:00 Active 40 mg SUBCUT Q24H HYDROmorphone [Dilaudid] Med 11/21/17 15:49 Ordered 1 mg IVPUSH Q1H PRN Ibuprofen [Motrin] Med 11/20/17 19:00 Active 200 - 400 mg PO Q4H PRN Lactated Ringers [Ringers, Lactated] 1,000 ml Med 11/20/17 15:00 Active IV ASDIRECTED Medication Orders Bisacodyl (Dulcolax) 10 mg PO DAILY PRN PRN Reason: Constipation Cyclobenzaprine HCl (Flexeril) 5 mg PO TID [facility] Last Admin: 11/21/17 13:15 Dose: 5 mg Admin: 11/21/17 06:31 Dose: 5 mg Admin: 11/20/17 21:43 Dose: 5 mg Admin: 11/20/17 13:35 Dose: 5 mg Admin: 11/20/17 05:24 Dose: 5 mg Admin: 11/19/17 21:56 Dose: 5 mg Admin: 11/19/17 14:06 Dose: 5 mg Enoxaparin Sodium (Lovenox) 40 mg SUBCUT Q24H [facility] Last Admin: 11/20/17 21:44 Dose: 40 mg Fentanyl (Sublimaze) 50 - 100 mcg IVPUSH Q5M PRN PRN Reason: Pain (severe 7-10) Last Admin: 11/19/17 13:05 Dose: 50 mcg Admin: 11/19/17 13:00 Dose: 50 mcg Hydromorphone HCl (Dilaudid) 1 mg IVPUSH Q1H PRN PRN Reason: Abdominal Pain Lactated Ringer's (Ringers, Lactated) 1,000 mls @ 1,000 mls/hr IV .BOLUS [facility] Last Admin: 11/19/17 15:29 Dose: 1,000 mls/hr Piperacillin Sod/Tazobactam (Sod 3.375 gm/ Sodium Chloride) 50 mls @ 100 mls/ hr IV Q8H [facility] Last Admin: 11/21/17 13:16 Dose: 100 mls/hr Infusion: 11/21/17 07:02 Dose: 100 mls/hr Admin: 11/21/17 06:32 Dose: 100 mls/hr Admin: 11/20/17 21:43 Dose: 100 mls/hr Infusion: 11/20/17 14:04 Dose: 100 mls/hr Admin: 11/20/17 13:34 Dose: 100 mls/hr Infusion: 11/20/17 05:54 Dose: 100 mls/hr Admin: 11/20/17 05:24 Dose: 100 mls/hr Infusion: 11/19/17 22:26 Dose: 100 mls/hr Admin: 11/19/17 21:56 Dose: 100 mls/hr Lactated Ringer's (Ringers, Lactated) 1,000 mls @ 100 mls/hr IV ASDIRECTED [facility] Last Admin: 11/21/17 15:35 Dose: 100 mls/hr Infusion: 11/21/17 14:00 Dose: 100 mls/hr Admin: 11/21/17 04:00 Dose: 100 mls/hr Infusion: 11/21/17 03:18 Dose: 100 mls/hr Admin: 11/20/17 17:18 Dose: 100 mls/hr Ibuprofen (Motrin) 200 - 400 mg PO Q4H PRN PRN Reason: Fever Last Admin: 11/20/17 19:38 Dose: 400 mg Ondansetron HCl (Zofran) 4 mg IVPUSH Q6H PRN PRN Reason: Nausea/Vomiting Oxycodone/Acetaminophen (Percocet 325-5 Mg) 2 tab PO Q4H PRN PRN Reason: Abdominal Pain Pantoprazole Sodium (Protonix Iv) 40 mg IVPUSH DAILY [facility] Last Admin: 11/21/17 08:56 Dose: 40 mg Admin: 11/20/17 08:54 Dose: 40 mg Admin: 11/19/17 14:06 Dose: 40 mg Polyethylene Glycol (Miralax) 17 gm PO DAILY PRN PRN Reason: Constipation Last Admin: 11/21/17 14:15 Dose: 17 gm Promethazine HCl (Phenergan) 25 mg IM Q6H PRN PRN Reason: Nausea Scopolamine (Transderm-Scop) 1.5 mg TRDERM Q72H PRN PRN Reason: Nausea Last Admin: 11/19/17 09:25 Dose: 1.5 mg Sodium Chloride (Saline Flush) 10 ml FLUSH ASDIRECTED PRN PRN Reason: Keep Vein Open Sodium Chloride (Saline Flush) 2.5 ml FLUSH ASDIRECTED PRN PRN Reason: Keep Vein Open - Plan Plan (Free Text/Narrative):: Pain: Will switch her from Dilaudid SCREENER AND BLENDER to IV Dilaudid 1 mg every hour as needed for severe pain as well as Percocet 325-45 mg 1-2 tabs every 4 hours as needed for pain. Cardiovascular/pulmonary: Patient's vital signs are now normal. Stop continuous cardiovascular monitoring. Wean off oxygen as appropriate. Encourage incentive spirometry use. GI: Ring output appears more serous. Continue to leave in place for now. Continue clear liquid diet until passing flatus. MiraLAX and Dulcolax tablet as needed Renal: Urine output adequate. BUN/creatinine stable. We'll stop checking CMP since LFTs and bilirubin are stable. Heme/ID: White blood count coming down. IV Zosyn until white blood count is within normal range. We'll then transition patient to oral ciprofloxacin and Flagyl for 1 week after surgery. Prophylaxis: Lovenox 40 mg daily, SCDs Transfer to the floor today.
[2017-11-21] MEDS: Acetaminophen/oxyCODONE 325-5 MG Tab PO PRN ×2 (16:06→21:24)
[2017-11-21] MEDS: Enoxaparin 40 MG/0.4 ML Syringe SUBCUT SCH (21:09)
[2017-11-22] MEDS: Lactated Ringers 1,000 ML IV SCH (02:27)
[2017-11-22] MEDS: Acetaminophen/oxyCODONE 325-5 MG Tab PO PRN ×4 (02:28→17:00)
[2017-11-22] MEDS: Cyclobenzaprine 5 MG Tab PO SCH ×2 (05:27→13:01)
[2017-11-22] MEDS: Piperacillin/Tazobactam 3.375 GM in Sodium Chloride 0.9% 50 ML IV SCH (05:27)
[2017-11-22] MEDS: metroNIDAZOLE 250 MG Tab PO SCH ×2 (07:37→12:55)
[2017-11-22] MEDS ORDERED: Ciprofloxacin 500 MG Tab PO SCH (09:00)
--- NOTE | 2017-11-22 16:27 | PCM.DCSUM1 ---
Discharge Summary - Hospital Course Free Text/Narrative:: Patient was admitted 11/18 for an elective cholecystectomy for symptomatic cholecystitis. Intra-operatively he was found to have gangrenous cholecystitis. The case was converted from laparoscopic to open. A cuff of gallbladder was left in place due to the severe degree of inflammation. He lost ~ 800ml of blood during the case and was admitted to the ICU after surgery. He was febrile , tachycardic and tachypenic for ~24 hours afterwards. He required several fluid boluses and was kept on IV zosyn. His fever broke the evening of POD #1 and his vitals improved after that. His WBC went back to normal and he was transitioned to oral antibiotics. His bowel habits returned and his diet was advanced. His LFTs remained normal. His drain output was high but serosanguinous. Today it appears serous. There is no bile staining at all. His pain is well controlled and he is cleared from discharge. - Discharge Data Discharge Date: 11/22/17 Discharge Disposition: Home, Self-Care 01 Condition: Good - Discharge Diagnosis/Problem(s) (1) Cholecystitis with cholelithiasis SNOMED Code(s): 377007399, [id number] ICD Code: K80.10 - CALCULUS OF GALLBLADDER W CHRONIC CHOLECYST W/O OBSTRUCTION Status: Acute Current Visit: Yes - Patient Summary/Data Operative Procedure(s) Performed: Laparoscopic converted to open cholecystectomy - Patient Instructions Diet: Regular Diet as Tolerated Diet, Other: Avoid large fatty meals Activity: No Lifting Over 20 Pounds (for six weeks ), Rest and Relax Today Driving: Do Not Drive (for one week) Showering/Bathing: May Shower, No Tub Bathing/Swimming (for two weeks after surgery) Wound/Incision Care: Keep Operative Site/Wound Site Clean and Dry Notify Provider of: Fever, Increased Pain, Swelling and Redness, Drainage, Nausea and/or Vomiting - Discharge Plan Prescriptions/Med Rec: Bisacodyl [Dulcolax] 10 mg PO DAILY PRN #14 tablet PRN Reason: Constipation Cyclobenzaprine [Flexeril] 5 mg PO TID PRN #30 tablet PRN Reason: Muscle Spasm metroNIDAZOLE 250 mg PO Q6H #16 tablet Polyethylene Glycol 3350 [MiraLAX] 17 gm PO DAILY PRN #14 packet PRN Reason: Constipation Home Medications: Home Meds Bisacodyl [Dulcolax] 10 mg PO DAILY PRN #14 tablet 11/22/17 [Rx] Cyclobenzaprine [Flexeril] 5 mg PO TID PRN #30 tablet 11/22/17 [Rx] Polyethylene Glycol 3350 [MiraLAX] 17 gm PO DAILY PRN #14 packet 11/22/17 [Rx] metroNIDAZOLE 250 mg PO Q6H #16 tablet 11/22/17 [Rx] Patient Handouts: Cyclobenzaprine tablets, Open Cholecystectomy, Care After, Bisacodyl tablets and capsules, Metronidazole tablets or capsules, Polyethylene Glycol powder Referrals: Anayeli Wallace MD [Physician] - 11/25/17 4:00 pm - General Info Functional Status: Reports: Pain Controlled, Tolerating Diet, Ambulating, Urinating - Review of Systems General: Reports: No Symptoms HEENT: Reports: No Symptoms Pulmonary: Reports: No Symptoms Cardiovascular: Reports: No Symptoms Gastrointestinal: Reports: No Symptoms Genitourinary: Reports: No Symptoms - Patient Data Vitals - Most Recent: Last Vital Signs Temp 36.3 C 11/22/17 11:59 Pulse 85 11/22/17 11:59 Resp 16 11/22/17 11:59 BP 114/58 L 11/22/17 11:59 Pulse Ox 96 11/22/17 11:59 Weight - Most Recent: 122.7 kg I&O - Last 24 hours: Intake & Output 11/22/17 11/22/17 11/22/17 06:59 14:59 22:59 Intake Total 2508 Output Total 1830 Balance 678 Lab Results - Last 24 hrs: Laboratory Results - last 24 hr 11/22/17 Range/Units 05:30 WBC 10.90 (4.0-11.0) K/uL RBC 3.98 L (4.50-5.90) M/uL Hgb 12.1 L (13.0-17.0) g/dL Hct 35.3 L (38.0-50.0) % MCV 88.7 (80.0-98.0) fL MCH 30.4 (27.0-32.0) pg MCHC 34.3 (31.0-37.0) g/dL RDW Std Deviation 39.4 (28.0-62.0) fl RDW Coeff of Vazquez 12 (11.0-15.0) % Plt Count 306 (150-400) K/uL MPV 8.70 (7.40-12.00) fL Nucleated RBC % 0.0 /100WBC Nucleated RBCs # 0 K/uL Med Orders - Current: Current Medications Bisacodyl (Dulcolax) 10 mg PO DAILY PRN PRN Reason: Constipation Last Admin: 11/21/17 16:06 Dose: 10 mg Ciprofloxacin (Ciprofloxacin Hcl) 500 mg PO BID [facility] Last Admin: 11/22/17 10:09 Dose: 500 mg Cyclobenzaprine HCl (Flexeril) 5 mg PO TID [facility] Last Admin: 11/22/17 13:01 Dose: 5 mg Enoxaparin Sodium (Lovenox) 40 mg SUBCUT Q24H [facility] Last Admin: 11/21/17 21:09 Dose: 40 mg Fentanyl (Sublimaze) 50 - 100 mcg IVPUSH Q5M PRN PRN Reason: Pain (severe 7-10) Last Admin: 11/19/17 13:05 Dose: 50 mcg Hydromorphone HCl (Dilaudid) 1 mg IVPUSH Q1H PRN PRN Reason: Abdominal Pain Ibuprofen (Motrin) 200 - 400 mg PO Q4H PRN PRN Reason: Fever Last Admin: 11/20/17 19:38 Dose: 400 mg Metronidazole (Metronidazole) 250 mg PO Q6H [facility] Last Admin: 11/22/17 12:55 Dose: 250 mg Ondansetron HCl (Zofran) 4 mg IVPUSH Q6H PRN PRN Reason: Nausea/Vomiting Last Admin: 11/21/17 21:09 Dose: 4 mg Oxycodone/Acetaminophen (Percocet 325-5 Mg) 2 tab PO Q4H PRN PRN Reason: Abdominal Pain Last Admin: 11/22/17 12:55 Dose: 1 tab Polyethylene Glycol (Miralax) 17 gm PO DAILY PRN PRN Reason: Constipation Last Admin: 11/21/17 14:15 Dose: 17 gm Promethazine HCl (Phenergan) 25 mg IM Q6H PRN PRN Reason: Nausea Scopolamine (Transderm-Scop) 1.5 mg TRDERM Q72H PRN PRN Reason: Nausea Last Admin: 11/19/17 09:25 Dose: 1.5 mg Sodium Chloride (Saline Flush) 10 ml FLUSH ASDIRECTED PRN PRN Reason: Keep Vein Open Sodium Chloride (Saline Flush) 2.5 ml FLUSH ASDIRECTED PRN PRN Reason: Keep Vein Open Discontinued Medications Acetaminophen (Tylenol) 650 mg PO Q6H PRN PRN Reason: Fever Last Admin: 11/20/17 16:06 Dose: 650 mg Bupivacaine HCl (Marcaine 0.5%) Confirm Administered Dose 30 ml .ROUTE .STK-MED ONE Stop: 11/19/17 07:37 Bupivacaine HCl (Marcaine 0.5%) Confirm Administered Dose 120 ml .ROUTE .STK- MED ONE Stop: 11/19/17 10:18 Cefazolin Sodium/Dextrose (Ancef) Confirm Administered Dose 2 gm IV .STK-MED ONE Stop: 11/19/17 09:06 Fentanyl (Sublimaze) Confirm Administered Dose 250 mcg .ROUTE .STK-MED ONE Stop: 11/19/17 10:54 Hydromorphone HCl (Dilaudid) 2 mg IVPUSH ONETIME ONE Stop: 11/19/17 12:26 Last Admin: 11/19/17 12:39 Dose: 2 mg Hydromorphone HCl (Dilaudid Microscopist 6 Mg In Ns 30 Ml) 6 mg IV ASDIRECTED PRN; Protocol PRN Reason: Abdominal Pain Last Admin: 11/21/17 04:34 Dose: 6 mg Cefazolin Sodium/Dextrose 2 gm (/ Premix) 50 mls @ 100 mls/hr IV ONETIME ONE Stop: 11/18/17 18:43 Last Admin: 11/19/17 13:49 Dose: Not Given Lactated Ringer's (Ringers, Lactated) 1,000 mls @ 150 mls/hr IV ASDIRECTED [facility] Last Admin: 11/20/17 01:52 Dose: 150 mls/hr Lactated Ringer's (Ringers, Lactated) 1,000 mls @ 1,000 mls/hr IV .BOLUS [facility] Last Admin: 11/22/17 02:27 Dose: 1,000 mls/hr Piperacillin Sod/Tazobactam (Sod 3.375 gm/ Sodium Chloride) 50 mls @ 100 mls/ hr IV Q8H [facility] Last Admin: 11/22/17 05:27 Dose: 100 mls/hr Lactated Ringer's (Ringers, Lactated) 1,000 mls @ 100 mls/hr IV ASDIRECTED [facility] Last Admin: 11/21/17 15:35 Dose: 100 mls/hr Pantoprazole Sodium (Protonix Iv) 40 mg IVPUSH DAILY [facility] Last Admin: 11/21/17 08:56 Dose: 40 mg - Exam General: Reports: Alert, Oriented HEENT: Reports: Pupils Equal, Pupils Reactive Lungs: Reports: Normal Respiratory Effort Cardiovascular: Reports: Regular Rate GI/Abdominal Exam: Soft, Non-Tender, No Distention, No Mass, Other (Drain output serosanguinous ) Back Exam: Reports: Normal Inspection Extremities: Normal Inspection
== END 2017-11-22 17:00 | disposition home or self-care (01) | DRG 262 ==
LOC: MW.SDS 07:58 → MW.ICU 12:59 → UNDOADMIN 13:23 → MW.MS 11-21 09:00
PROVIDERS: ADMIT Surgery; ATTEND Surgery
PROC: 0FT40ZZ Resection of Gallbladder, Open Approach (ICD-10-PCS; principal; 2017-11-19)
PROC: 0FJ44ZZ Inspection of Gallbladder, Percutaneous Endoscopic Approach (ICD-10-PCS; 2017-11-19)
DX: K80.10 Calculus of gallbladder with chronic cholecystitis without obstruction (principal); R50.9 Fever, unspecified; R06.82 Tachypnea, not elsewhere classified; R00.0 Tachycardia, unspecified; F41.8 Other specified anxiety disorders; Z88.2 Allergy status to sulfonamides
CPT/HCPCS: 00790; 36415; 80053; 85018; 85025; 85027; 88304; A9270-GY; C9113; J0690; J1170; J1650; J2405; J2543; J3010; J7050; J7120

== ENCOUNTER 2024-08-02 16:48 | Emergency (ER) | payer BC ==
[2024-08-02 17:00] LABS: BASOPHILS ABSOLUTE AUTO 0.09 K/uL (0.00-0.20); BASOPHILS PERCENT AUTO 0.7 % (0.0-1.0); EOSINOPHILS ABSOLUTE AUTO 0.37 K/uL (0.00-0.45); EOSINOPHILS PERCENT AUTO 2.8 % (0.0-6.0); HEMATOCRIT 44.2 % (42.0-52.0); HEMOGLOBIN 15.5 g/dL (14.0-18.0); IMMATURE GRAN ABSOLUTE AUTO 0.04 K/uL (0.00-0.05); IMMATURE GRAN PERCENT AUTO 0.3 % (0.0-0.4); LYMPHOCYTES PERCENT AUTO 36.1 % (24.0-44.0); MEAN CORPUSCULAR HEMOGLOBIN 30.4 pg (28.0-32.0); MEAN CORPUSCULAR HGB CONC 35.1 g/dL (32.0-36.0); MEAN CORPUSCULAR VOLUME 86.7 fL (83.0-99.0); MEAN PLATELET VOLUME 8.9 fL (9.4-12.4); MONOCYTES ABSOLUTE AUTO 1.08 K/uL (0.00-0.80); MONOCYTES PERCENT AUTO 8.1 % (0.0-8.0); NEUTROPHILS ABSOLUTE AUTO 6.91 K/uL (1.80-7.70); PLATELET COUNT,PLT 312 K/uL (150-400); WHITE BLOOD CELL COUNT,WBC 13.29 K/uL (3.9-11.3)
[2024-08-02] MEDS: Pantoprazole 40 MG in Sodium Chloride 0.9% 10 ML IVPUSH ONE (17:05)
[2024-08-02 17:09] LABS: INR 1.04 (0.86-1.11)
[2024-08-02 17:30] LABS: A/G RATIO 0.9 (0.9-1.6); ALANINE AMINOTRANSFERASE,ALT 49 IU/L (14-63); ALBUMIN 4.1 g/dL (3.4-5.0); ALKALINE PHOSPHATASE 91 U/L (46-116); ASPARTATE AMNIOTRANSFERASE,AST 17 IU/L (15-37); BILIRUBIN TOTAL 0.6 mg/dL (0.2-1.0); BLOOD UREA NITROGEN,BUN 15 mg/dL (7.0-18.0); CALCIUM 9.3 mg/dL (8.5-10.1); CARBON DIOXIDE,CO2 27.4 mmol/L (21.0-32.0); CHLORIDE,CL 101 mmol/L (98-107); CREATININE 1.1 mg/dL (0.8-1.3); ESTIMATED GFR 89 mL/min (>60); GLUCOSE RANDOM 87 mg/dL (74-106); LIPASE 40 U/L (16-77); MAGNESIUM 2.2 mg/dL (1.8-2.4); PRO B-TYPE NATRIUR PEPT,BNPPRO 27 pg/mL (0-125); PROTEIN TOTAL,TP 8.5 g/dL (6.4-8.2); SODIUM,NA 141 mmol/L (136-148)
[2024-08-02] MEDS: Ketorolac 30 MG/ML SDV IVPUSH ONE (18:13)
[2024-08-02] MEDS: Alum Hydrox/Mag Hydrox/Simeth 15 ML, Metoclopramide 5 MG, Lidocaine 2% 5 ML PO ONE (18:14)
== END 2024-08-02 20:18 | disposition home or self-care (01) ==
LOC: MW.ED 16:48
DX: K21.9 Gastro-esophageal reflux disease without esophagitis (principal); E66.9 Obesity, unspecified; Z90.49 Acquired absence of other specified parts of digestive tract; Z88.2 Allergy status to sulfonamides; Z68.44 Body mass index [BMI] 60.0-69.9, adult
CPT/HCPCS: 36415; 71045; 80053; 80061; 83690; 83735; 83880; 84484; 85025; 85610; 93005; 96374; 96375; 99285; A9270; J1885; J2470; 93010; 99284